=== PATIENT | male | born 1990 | race Caucasian/White ===

== ENCOUNTER 2016-10-22 12:46 | Emergency (ER) | payer SELFPAY ==
[~2016-10-22] VITALS: Ht 177.8 cm; Wt 104.3 kg
[2016-10-22] MEDS ORDERED: IV NORMAL SALINE 1,000ML 1,000 ML IV ONE (13:00)
[2016-10-22] MEDS ORDERED: METOCLOPRAMIDE HCL 10 MG/2 ML VIAL. IV ONE (13:00)
[2016-10-22] MEDS ORDERED: diphenhydrAMINE 50 MG/ML VIAL IVP ONE (13:00)
[2016-10-22] MEDS ORDERED: PROCHLORPERAZINE 10 MG/2 ML VIAL. IV ONE (13:00)
[2016-10-22] MEDS ORDERED: KETOROLAC 30 MG/ML VIAL. ONE (13:46)
--- NOTE | 2016-10-22 13:58 | PHYS DOC ---
Past History Past Medical History: No Pertinent History Past Surgical History: Other Alcohol Use: None Drug Use: None Adult General Chief Complaint Chief Complaint: HEADACHE HPI HPI Patient is a 25 y/o male brought to the ED by his with the complaint of headache. Patient states he was fine yesterday. He went to work. He works in fast food. He has not had any injury. Nothing happened out of the ordinary. This morning is his day off. He was sleeping late. When he woke up, he woke up with a headache. gave him some medication for the headache which he took and has not helped. He has had nausea and has vomited a couple of times. He saw blood in the vomit but states he had a nosebleed. He has felt off balance and has had photophobia. Patient does not have chronic headaches. He's never had to go to the ER for headache before. He does sometimes have a headache, he takes something for it and it goes away. Patient describes his headache as 10 out of 10. Patient does not smoke. He denies drugs. He has no chronic medical problems. He takes no medications. Review of Systems Review of Systems Constitutional: Denies fever or chills [] Eyes: Positive photophobia with this headache HENT: He had a sore throat yesterday but it is not sore today Respiratory: Denies cough or shortness of breath [] Cardiovascular: Denies chest pain GI: As in history of present illness Neurologic: As in history of present illness Current Medications Current Medications Current Medications Medications (Trade) Dose Ordered Sig/Eldon Start Time Stop Time Status Last Admin Dose Admin Diphenhydramine HCl (Benadryl) 25 mg 1X ONCE 10/22/16 13:00 10/22/16 13:34 DC 10/22/16 13:00 25 MG Metoclopramide HCl (Reglan) 10 mg 1X ONCE 10/22/16 13:00 10/22/16 13:34 DC 10/22/16 13:00 10 MG Prochlorperazine Edisylate (Compazine) 10 mg 1X ONCE 10/22/16 13:00 10/22/16 13:34 DC 10/22/16 13:00 10 MG Sodium Chloride 1,000 ml @ 1,000 mls/hr 1X ONCE 10/22/16 13:00 9/13/17 13:59 10/22/16 13:05 1,000 MLS/HR Allergies Allergies Allergies Coded Allergies Type Severity Reaction Last Updated Verified No Known Drug Allergies 10/22/16 No Physical Exam Physical Exam Constitutional: Well developed, well nourished, no acute distress, non-toxic appearance. Alert, ambulatory, warm and dry. HENT: Normocephalic, atraumatic, bilateral external ears normal, oropharynx moist, no oral exudates, tonsils not enlarged or red, nose normal. [] Eyes: PERRLA, EOMI, conjunctiva with mild injection bilaterally, no discharge. [ ] Neck: Normal range of motion, no stridor. [] Cardiovascular:Heart rate regular rhythm, no murmur [] Lungs & Thorax: Bilateral breath sounds clear to auscultation [] Abdomen: Bowel sounds normal, soft, no tenderness, no masses, no pulsatile masses. [] Skin: Warm, dry, no erythema, no rash. [] Extremities: No tenderness, no cyanosis, no clubbing, ROM intact, no edema. [] Neurologic: Alert and oriented X 3, normal motor function, no focal deficits noted. [] Current Patient Data Vital Signs Vital Signs Date Time Temp Pulse Resp B/P (MAP) Pulse Ox O2 Delivery O2 Flow Rate FiO2 10/22/16 12:52 97.9 73 18 98 Room Air EKG EKG [] Radiology/Procedures Radiology/Procedures [] Course & Med Decision Making Course & Med Decision Making Pertinent Labs and Imaging studies reviewed. (See chart for details) 25-year-old male presents with a left-sided parietal headache with photophobia that he woke up with this morning. He does not have chronic headaches. He has had some nausea and vomited a couple of times. He is neurologically intact. No fever, no neck stiffness. I discussed with the patient that we will give him some IV medications and IV fluids, he is agreeable to that plan. Patient was given a cocktail of IV Reglan, IV Compazine, and IV Benadryl. He was given a liter of IV normal saline. After about 40 minutes, patient stated that his headache is no better at all. He has not vomited in the ED. He remains alert. We will try Toradol and check a CT scan of his head. CT scan of the head read by the radiologist was negative. Rechecked the patient after IV Toradol. Patient was asleep. When I woke him up, he stated "I feel a lot better". Stated his headache is almost gone. There is no evidence of any serious cause of the headache. Patient is stable for discharge. [] Dragon Disclaimer Dragon Disclaimer This chart was dictated in whole or in part using Voice Recognition software in a busy, high-work load, and often noisy Emergency Department environment. It may contain unintended and wholly unrecognized errors or omissions. Departure Departure: Impression: Primary Impression: Headache Disposition: HOME, SELF-CARE Condition: IMPROVED Referrals: PCP,CE (PCP) Patient Instructions: General Headache Without Cause, [id number] Additional Instructions: There is no sign of any serious cause of your headache. Go home and try to take a nap in a dark quiet room. Drink plenty of fluids and eat healthy meals today. If you have continued headache, you may take Tylenol or ibuprofen for it. If headaches continue to bother you, see your doctor for recheck. If you have worsening of symptoms, return to emergency. No driving for 12 hours because of the medications that you were given in the emergency department. EAN TANNER MD Oct 22, 2016 13:58
[2016-10-22] MEDS ORDERED: KETOROLAC 30 MG/ML VIAL. IV ONE (14:00)
--- NOTE | 2016-10-22 14:15 | RAD ---
CT of the head without contrast, 10/22/2016: History: Headache, blurry vision and dizziness The ventricles are within normal limits in size. There is no shift of the midline structures. There is no evidence of acute intracranial hemorrhage or mass effect. IMPRESSION: No acute intracranial abnormality is detected. PQRS Compliance Statement: One or more of the following individualized dose reduction techniques were utilized for this examination: 1. Automated exposure control 2. Adjustment of the mA and/or kV according to patient size 3. Use of iterative reconstruction technique
[2016-10-22 15:05] VITALS: BP 106/43
== END 2016-10-22 15:09 | disposition home or self-care (01) ==
LOC: ER 12:46
DX: R51 Headache (principal); R11.2 Nausea with vomiting, unspecified; R04.0 Epistaxis
CPT/HCPCS: 70450; 96361; 96374; 96375; 99284; J0780; J1200; J1885; J2765; J7030

== ENCOUNTER 2018-12-20 14:54 | Emergency (ER) | payer SELFPAY ==
[~2018-12-20] VITALS: Ht 175.3 cm; Wt 111.1 kg
[2018-12-20 14:56] VITALS: BP 142/87
--- NOTE | 2018-12-20 15:23 | RAD ---
Examination: HAND RIGHT 3V, FOREARM RIGHT History: Swelling and pain of the right hand Comparison/Correlation: None Findings: 3 views and right hand and two-view exam right forearm was performed. Joint spaces are unremarkable. No displaced fracture or bony destructive finding. Soft tissues are within normal limits. Bony density about the fifth metacarpal base probably represents accessory ossicle. 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 No evidence of elbow joint effusion. Impression: No suspicious process. Consider further evaluation if occult process is a persistent concern. Electronically signed by: Gordon Loyd MD (12/20/2018 3:21 PM) [facility]
--- NOTE | 2018-12-20 15:35 | PHYS DOC ---
Text Text No runny injury evident on exam. Tetanus updated. Recommendations are for topical antibiotic and rice with PCP/work comp follow-up. General Chief Complaint: HAND PROBLEM Stated Complaint: HAND PAIN Time Seen by MD: 14:57 Source: patient History of Present Illness Initial Comments Patient is a 28-year-old right-handed male presents with right hand/forearm injury while at work. 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 Patient with abrasions/contusion over dorsum of right hand right thumb with abrasion to the distal aspect of left thumb. Patient also reports mild forearm soft tissue tenderness. Injury occurred earlier this morning. No other acute symptoms or complaints. Date his previous tetanus shot is unknown. Onset: this morning Pain/Injury Location: right forearm, right wrist Method of Injury: twisted Allergies: Coded Allergies: No Known Drug Allergies (Unverified , 10/22/16) Past Medical History Medical History: no pertinent history Surgical History: no surgical history Review of Systems Constitutional: no symptoms reported EENTM: no symptoms reported Respiratory: no symptoms reported Cardiovascular: no symptoms reported Gastrointestinal: no symptoms reported Genitourinary: no symptoms reported Musculoskeletal: see HPI Skin: no symptoms reported Psychiatric/Neurological: no symptoms reported All Other Systems: Reviewed and Negative Physical Exam General Appearance: WD/WN HEENT: PERRL/EOMI Neck: non-tender Cardiovascular/Respiratory: regular rate, rhythm Gastrointestinal: non-tender Elbow/Forearm: soft tissue tenderness, swelling Wrist: pain, soft tissue tenderness Hand: abrasions, deformity, soft tissue tenderness, swelling Neurologic/Tendon: normal sensation Psychiatric: alert, oriented x 3 Orders, Labs, Meds Right forearm/hand: No suspicious injury per radiology report. CASIE BALLARD DO Dec 20, 2018 15:35
[2018-12-20] MEDS ORDERED: TRAM50TA PO (15:38)
[2018-12-20] MEDS ORDERED: IBUPROFEN 600 MG TABLET. PO ONE (15:45)
[2018-12-20] MEDS ORDERED: DIPHTH,PERTUSS(ACELL),TET TOX 0.5 ML DISP.SYRIN. VAX IM ONE (16:00)
== END 2018-12-20 16:00 | disposition home or self-care (01) ==
LOC: ER 14:54
DX: S59.911A Unspecified injury of right forearm, initial encounter (principal); S69.91XA Unspecified injury of right wrist, hand and finger(s), initial encounter; S60.312A Abrasion of left thumb, initial encounter; X50.1XXA Overexertion from prolonged static or awkward postures, initial encounter; Y93.89 Activity, other specified; Y92.89 Other specified places as the place of occurrence of the external cause; Y99.8 Other external cause status
CPT/HCPCS: 73090; 73130; 90471; 90715; 99284-25